=== PATIENT | male | born 1995 | race Caucasian/White ===

== ENCOUNTER 2019-10-01 09:43 | Emergency (ER) | payer OTHER ==
[~2019-10-01] VITALS: Ht 167.6 cm; Wt 61.7 kg
[2019-10-01 10:50] LABS: APPEARANCE, URINE CLEAR (CLEAR); BACTERIA, URINE AUTO NEGATIVE (NEGATIVE); BILIRUBIN, URINE AUTO NEGATIVE (NEGATIVE); BLOOD, URINE BLOOD NEGATIVE (NEGATIVE); COLOR, URINE YELLOW (YELLOW); GLUCOSE, URINE (UA) AUTO NEGATIVE (NEGATIVE); KETONE, URINE AUTO NEGATIVE (NEGATIVE); LEUKOCYTE ESTERASE, URINE AUTO NEGATIVE (NEGATIVE); NITRITE, URINE AUTO NEGATIVE (NEGATIVE); PROTEIN, URINE AUTO NEGATIVE (NEGATIVE); RBC, URINE AUTO 1 /HPF (0-3); SPECIFIC GRAVITY URINE AUTO 1.017 (1.002-1.035); SQUAMOUS EPITHELIAL CELL UR AU 0 /HPF (0-6); UROBILINOGEN, URINE AUTO 0.2 mg/dL (0.0-2.0); WBC, URINE AUTO 0 /HPF (0-3)
[2019-10-01] MEDS ORDERED: IBUP-1022 PO (11:26)
[2019-10-01 11:37] VITALS: BP 133/60
[2019-10-01 12:25] LABS: CHLAMYDIA DNA AMPLIFICATION NEGATIVE (NEGATIVE); GC DNA AMPLIFICATION NEGATIVE (NEGATIVE)
--- NOTE | 2019-10-01 13:22 | REP ---
Oral ultrasound for left testicular pain: The right testis measures 4.5 x 2.2 by 3.2 cm. The left testis measures 4.3 x 2.9 x 2.9 cm. The testes are normal size. There are no testicular masses or cysts. There is vascular flow in both testes. The Doppler resistive index in the parenchymal arteries of the right testis is 0.73 and left testis 0.61. The right epididymis is unremarkable. There is a 2 mm left epididymal head cyst and a left hip. This is otherwise unremarkable. There are small bilateral hydroceles. Impression: The right and left epididymi are unremarkable except for a 2 mm left epididymal head cyst. There is vascular flow in both testes. There are no testicular masses or cysts. There are small bilateral hydroceles. Electronically Signed by Cal Raymond MD 10/01/2019 01:14 P
== END 2019-10-01 11:44 | disposition home or self-care (01) ==
LOC: M ED 09:43
DX: N50.3 Cyst of epididymis (principal); N43.3 Hydrocele, unspecified; F17.218 Nicotine dependence, cigarettes, with other nicotine-induced disorders

== ENCOUNTER 2020-11-05 17:52 | Emergency (ER) | payer OTHER ==
[~2020-11-05] VITALS: Ht 167.6 cm; Wt 65.1 kg
[~2020-11-05 17:52] MED LIST: IBUP-1022 PO
--- NOTE | 2020-11-05 18:19 | REP ---
INDICATION: pain/limited rom COMPARISON: None. TECHNIQUE: Internal rotation, external rotation, and Y view. FINDINGS: No acute fracture or dislocation. The acromioclavicular and glenohumeral joints are intact. No periarticular calcifications or degenerative changes are appreciated. Sub acromial space is normal. Surrounding soft tissues are unremarkable. IMPRESSION: Normal left shoulder radiographs. <Electronically signed by Ruiz Graham > 11/05/20 [id number]
[2020-11-05] MEDS ORDERED: KETO10TAB PO (19:16)
[2020-11-05] MEDS ORDERED: CYCL5TAB PO (19:16)
[2020-11-05] MEDS ORDERED: KETOROLAC TROMETHAMINE 10 MG TAB PO ONE (19:20)
[2020-11-05 19:29] VITALS: BP 117/63
== END 2020-11-05 19:43 | disposition home or self-care (01) ==
LOC: M ED 17:52
DX: S43.52XA Sprain of left acromioclavicular joint, initial encounter (principal); X50.0XXA Overexertion from strenuous movement or load, initial encounter; Y92.39 Other specified sports and athletic area as the place of occurrence of the external cause; Y93.B9 Activity, other involving muscle strengthening exercises; Y99.9 Unspecified external cause status